=== PATIENT | male | born 1995 ===

== ENCOUNTER 2018-03-23 08:03 | Emergency (ER) | payer BC ==
[2018-03-23 08:08] VITALS: BMI 28.7
[2018-03-23] MEDS ORDERED: Tdap Vaccine 0.5 ml Vial (10-64 yrs) IM ONE (08:30)
[2018-03-23] MEDS ORDERED: Lidocaine 1% Inj (20ml) IJ ONE (08:46)
[2018-03-23] MEDS ORDERED: Lidocaine 2% Inj (20ml) IJ ONE (08:57)
--- NOTE | 2018-03-23 09:00 | ED PDOC ---
HPI: Trauma/Fall - HPI Time Seen by Provider: 03/23/18 08:27 Chief Complaint (Nursing): Trauma Chief Complaint (Provider): Facial Laceration History Per: Patient History/Exam Limitations: no limitations Location Of Injury: Left: Foot Severity: None Associated Symptoms: denies: Dizziness, LOC Additional Complaint(s): 22 year old presents to the emergency department with injury to the left side of his face and his lower chin. Patient reports that he fell on wet concrete causing injury. Denies loss of consciousness, neck pain, change in vision, dizziness, current facial pain. Last tetanus unknown. PMD: NO PRIMARY CARE PROVIDER Past Medical History Reviewed: Historical Data, Nursing Documentation, Vital Signs Vital Signs: Last Vital Signs Temp 99 F 03/23/18 09:53 Pulse 87 03/23/18 09:53 Resp 18 03/23/18 09:53 BP 118/63 03/23/18 09:53 Pulse Ox 96 03/23/18 09:53 - Medical History PMH: No Chronic Diseases - Surgical History Surgical History: No Surg Hx - Family History Family History: States: Unknown Family Hx - Home Medications Home Medications: Ambulatory Orders Medication Instructions Recorded Cephalexin [cephalexin] 500 mg PO BID #10 cap 03/23/18 traMADol [Ultram] 50 mg PO TID PRN #12 tab 03/23/18 - Allergies Allergies/Adverse Reactions: Allergies Allergy/AdvReac Type Severity Reaction Status Date / Time No Known Allergies Allergy Verified 03/23/18 08:21 Review of Systems ROS Statement: Except As Marked, All Systems Reviewed And Found Negative Constitutional: Positive for: Other (laceration to lower chin and lefts moira of face) Eyes: Negative for: Vision Change Musculoskeletal: Negative for: Neck Pain Physical Exam - Physical Exam Head Exam: Positive for: NORMOCEPHALIC. Negative for: ATRAUMATIC (2cm abrasion to left lateral face to periorbital area; no meme tenderness; no scalp hematoma. 3cm linear laceration submental no bleeding no other sign of traumatic injury.) Skin: Positive for: Normal Color, Warm, Dry. Negative for: Rash Eye Exam: Positive for: Normal appearance, EOMI, PERRL. Negative for: Nystagmus ENT: Positive for: Normal ENT Inspection, Other (left # 10 tooth w/ full fracture base of tooth is not loose, no bleeding.). Negative for: Nasal Congestion, Tonsillar Exudate, Tonsillar Swelling Neck: Positive for: Normal, Painless ROM, Supple Cardiovascular/Chest: Positive for: Regular Rate, Rhythm, Chest Non Tender. Negative for: Tachycardia Respiratory: Positive for: Normal Breath Sounds. Negative for: Rales, Rhonchi, Wheezing, Respiratory Distress Gastrointestinal/Abdominal: Positive for: Normal Exam, Bowel Sounds, Soft. Negative for: Tenderness, Mass, Guarding, Rebound Back: Positive for: Normal Inspection. Negative for: L CVA Tenderness, R CVA Tenderness, Vertebral Tenderness, Muscle Spasm Extremity: Positive for: Normal ROM. Negative for: Tenderness, Deformity, Swelling Neurologic/Psych: Positive for: Alert, Oriented, Gait - ECG O2 Sat by Pulse Oximetry: 98 (RA) Pulse Ox Interpretation: Normal Medical Decision Making Medical Decision Makin Initial Impression 22 year old male presenting with laceration to the face Initial plan: * Tetanus 0.5 mL * Lidocaine 20 mL IJ * Reevaluation Plan to up date tetanus and perform laceration and wound irrigation. 0915 Marte trimmed and 3.5 cm laceration area infiltrated with 7 mL of lidocaine 2% and irrigated with 500 cc's NS. See procedure note for more details. Bacitracin applied also given bacitracin samples. Given 5-6 hours wound was open Keflex will also be provided. TIBURCIO DICKSON, thank you for letting us take care of you today. Your provider was Harlan Pearl III, DO and you were treated for S/P FALL POSS CHIN LACERATION. The emergency medical care you received today was directed at your acute symptoms. If you were prescribed any medication, please fill it and take as directed. It may take several days for your symptoms to resolve. Return to the Emergency Department if your symptoms worsen, do not improve, or if you have any other problems. Please contact your doctor or call one of the physicians/clinics you have been referred to that are listed on the Patient Visit Information form that is included in your discharge packet. Bring any paperwork you were given at discharge with you along with any medications you are taking to your follow up visit. Our treatment cannot replace ongoing medical care by a primary care provider outside of the emergency department. Thank you for allowing the [facility] team to be part of your care today. -- Documented by Phyllis Bender acting as a scribe for Harlan Pearl III, DO. All medical record entries made by the Scribe were at my direction and personally dictated by me. I have reviewed the chart and agree that the record accurately reflects my personal performance of the history, physical exam, medical decision making, and the department course for this patient. I have also personally directed, reviewed, and agree with the discharge instructions and disposition. Procedures - Time-Out Type of Procedure: lacertion repair Site of Procedure: Submental Area Correct Patient (with visual ID + MR# on ID Band): Yes Correct Procedure: Yes Correct Site Marked: Yes Medication Reconciliation / Bloodwork / Allergies Checked: Yes Physician Name: Dr. Harlan Pearl III - Laceration/Wound Repair submental area Wound Length (cm): 3.5 Wound's Depth, Shape: linear Wound Explored: clean Irrigated w/ Saline (ccs): 500 Betadine Prep?: No Wound Repaired With: Sutures Suture Size/Type: 5:0 (placed with good wound margin approximation likely scar to area given irregularity of wound ), nylon Number of Sutures: 5 Layer Closure?: No Wound Complexity: Simple Disposition - Clinical Impression Clinical Impression: Facial laceration, Tooth fracture, Facial abrasion - Patient ED Disposition Is Patient to be Admitted: No Counseled Patient/Family Regarding: Studies Performed, Diagnosis, Need For Followup - Disposition Referrals: [facility] [Outside] Disposition: Routine/Home Disposition Time: 09:30 Condition: STABLE Additional Instructions: Take antibiotics as directed. Use pain medicine as directed. See dentist for tooth fracture. Sutures out in 4-5 days. Return ER earlier for pain, fever, redness or discharge to area. Prescriptions: Cephalexin [cephalexin] 500 mg PO BID #10 cap traMADol [Ultram] 50 mg PO TID PRN #12 tab PRN Reason: Pain, Moderate (4-7) Instructions: Skin Abrasions, Laceration Repair With Stitches (DC) Forms: [employer] (Latvian)
[2018-03-23 09:53] VITALS: BP 118/63; PULSE 87; RESP 18; TEMP 99
[2018-03-30 18:47] VITALS: O2SAT 98
== END 2018-03-23 09:55 | disposition home or self-care (01) ==
LOC: H.ER 08:03
DX: S01.81XA Laceration without foreign body of other part of head, initial encounter (principal); S02.5XXA Fracture of tooth (traumatic), initial encounter for closed fracture; W01.0XXA Fall on same level from slipping, tripping and stumbling without subsequent striking against object, initial encounter; Y92.9 Unspecified place or not applicable; Z23 Encounter for immunization